=== PATIENT | female | born 1995 | race American Indian/Alaskan Native ===

== ENCOUNTER 2017-11-12 12:45 | Emergency (ER) | payer OTHER ==
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
[2017-11-12 17:02] LABS: HCG Qualitative,Urine Negative (Negative)
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
--- NOTE | 2017-11-12 18:18 | XRay Report ---
FINAL REPORT EXAM: XR SPINE CERVICAL 2-3V HISTORY: bilateral neck pain COMPARISON: None available. FINDINGS: Three views of the cervical spine obtained. Cervical vertebral body heights are preserved. Disc heights are preserved. There is straightening of the normal lordotic curvature which may relate to patient positioning or muscle spasm. Prevertebral soft tissues are within normal limits. Odontoid process is grossly intact. IMPRESSION: Cervical vertebral body heights and disc heights are preserved. Prevertebral soft tissues are within normal limits. There is straightening of the normal lordotic curvature which may relate to patient positioning or muscle spasm.
--- NOTE | 2017-11-12 18:22 | XRay Report ---
FINAL REPORT EXAM: XR SPINE LUMBOSACRAL 2-3V HISTORY: low back pain COMPARISON: None available. FINDINGS: Three views of the lumbar spine obtained. Lumbar vertebral body heights and disc heights are preserved. Pedicles are intact. No spondylolisthesis. Mild levoconvex curvature. IUD projects over the midline of the pelvic cavity. SI joints are preserved. IMPRESSION: Lumbar vertebral body heights and disc heights are preserved. Mild scoliotic curvature.
[2017-11-12 18:33] VITALS: BP 115/67
== END 2017-11-12 18:57 | disposition home or self-care (01) ==
LOC: ED 12:45
DX: S39.012A Strain of muscle, fascia and tendon of lower back, initial encounter (principal); S16.1XXA Strain of muscle, fascia and tendon at neck level, initial encounter; V89.2XXA Person injured in unspecified motor-vehicle accident, traffic, initial encounter; Y93.89 Activity, other specified; Y92.488 Other paved roadways as the place of occurrence of the external cause; Y99.8 Other external cause status
CPT/HCPCS: 72040; 72070; 72100; 81025; 99283

== ENCOUNTER 2022-01-05 21:08 | Emergency (ER) | payer SELFPAY ==
[2022-01-05 23:30] LABS: Basophils % (Auto) 0.4 % (0.0-1.8); Eosinophils # (Auto) 0.8 K/mm3 (0.0-0.4); Eosinophils % (Auto) 7.4 % (0.0-4.3); Hematocrit 37.3 % (30.3-42.9); Hemoglobin 12.3 gm/dl (10.1-14.3); Lymphocytes # (Auto) 3.7 K/mm3 (1.2-5.4); Lymphocytes % (Auto) 36.1 % (13.4-35.0); Mean Corpuscular HGB Conc 33 % (30-34); Mean Corpuscular Volume 85 fl (79-97); Monocytes # (Auto) 0.7 K/mm3 (0.0-0.8); Monocytes % (Auto) 6.8 % (0.0-7.3); Platelet Count 279 K/mm3 (140-440); Red Cell Distribution Width 15.5 % (13.2-15.2)
[2022-01-05 23:35] LABS: Blood Urea Nitrogen 13 mg/dL (7-17); Calcium 9.5 mg/dL (8.4-10.2); Hemolysis Index 3
[2022-01-05 23:39] LABS: BUN/Creatinine Ratio 19
[2022-01-06 02:17] LABS: Bilirubin,Urine NEG (Negative); Blood,Urine NEG (Negative); Color,Urine Yellow (Yellow); Protein,Urine <15 mg/dL mg/dL (Negative)
[2022-01-06 02:19] LABS: Mucus,Urine 2+ /HPF; Urobilinogen,Urine < 2 mg/dL (<2.0)
[2022-01-06 02:20] LABS: HCG Qualitative,Urine Positive (Negative); WBC,Urine < 1.0 /HPF (0.0-6.0)
[2022-01-06] MEDS ORDERED: ACETAMINOPHEN 500 MG TAB PO ONE (03:44)
--- NOTE | 2022-01-06 06:23 | Ultrasound Report ---
ULTRASOUND OBSTETRIC INDICATION / CLINICAL INFORMATION: Vaginal bleeding pain. - Clinical Gestational Age (GA) in weeks, days: 5 weeks 1 day TECHNIQUE: Transabdominal and Transvaginal. COMPARISON: None available. FINDINGS: No intrauterine gestation is identified. UTERUS: Normal measuring 8.4 x 5.6 x 4.9 cm. Endometrial thickness of 1.7 cm. ADNEXA: The right ovary is normal measuring 2.8 cm. The left ovary is mildly enlarged containing mult iple ovarian follicular cysts with the largest measuring 2.3 cm in diameter. FREE FLUID: Small volume ADDITIONAL FINDINGS: None. IMPRESSION: 1. No intrauterine gestation identified. Recommend serial quantitative beta-hCG measurements and shor t-term ultrasound follow-up. 2. Simple left ovarian cysts and mild physiologic free pelvic fluid. Signer Name: Sukh Dolan MD Signed: 01/06/2022 6:18 AM Workstation Name: [employer]
--- NOTE | 2022-01-06 07:11 | Emergency Department Report ---
- General Chief Complaint: Abdominal Pain Stated Complaint: ABD PAIN Time Seen by Provider: 01/06/22 04:33 Source: patient Mode of arrival: Ambulatory Limitations: No Limitations - Related Data Previous Rx's Medication Instructions Recorded Last Taken Type Cyclobenzaprine HCl [Flexeril 5 MG 5 mg PO TID PRN #15 tab 11/12/17 Unknown Rx TAB] Ibuprofen [Motrin 800 MG tab] 800 mg PO Q8HR PRN #15 tablet 11/12/17 Unknown Rx Allergies Allergy/AdvReac Type Severity Reaction Status Date / Time No Known Allergies Allergy Unverified 11/12/17 12:51 ED Review of Systems ROS: Stated complaint: ABD PAIN Other details as noted in HPI Comment: All other systems reviewed and negative ED Past Medical Hx - Past Medical History Previous Medical History?: No Hx Hypertension: No Hx Diabetes: No Hx Deep Vein Thrombosis: No Hx Renal Disease: No Hx Sickle Cell Disease: No Hx Seizures: No Hx Asthma: No - Surgical History Past Surgical History?: No - Social History Smoking Status: Never Smoker Substance Use Type: None - Medications Home Medications: Home Medications Medication Instructions Recorded Confirmed Last Taken Type Cyclobenzaprine HCl [Flexeril 5 MG 5 mg PO TID PRN #15 tab 11/12/17 Unknown Rx TAB] Ibuprofen [Motrin 800 MG tab] 800 mg PO Q8HR PRN #15 tablet 11/12/17 Unknown Rx ED Physical Exam - General Limitations: No Limitations General appearance: alert, in no apparent distress - Head Head exam: Present: atraumatic, normocephalic - Eye Eye exam: Present: normal appearance - ENT ENT exam: Present: mucous membranes moist - Neck Neck exam: Present: normal inspection - Respiratory Respiratory exam: Present: normal lung sounds bilaterally. Absent: respiratory distress - Cardiovascular Cardiovascular Exam: Present: regular rate, normal rhythm. Absent: systolic murmur, diastolic murmur, rubs, gallop - GI/Abdominal GI/Abdominal exam: Present: soft, tenderness (cramping), normal bowel sounds - Extremities Exam Extremities exam: Present: normal inspection - Back Exam Back exam: Present: normal inspection - Neurological Exam Neurological exam: Present: alert, oriented X3 - Psychiatric Psychiatric exam: Present: normal affect, normal mood - Skin Skin exam: Present: warm, dry, intact, normal color. Absent: rash ED Course Vital Signs 01/05/22 22:30 Temperature 98.3 F Pulse Rate 70 Respiratory 18 Rate Blood Pressure 109/55 O2 Sat by Pulse 100 Oximetry ED Medical Decision Making - Lab Data Result diagrams: 01/05/22 22:44 01/05/22 22:44 Critical care attestation.: If time is entered above; I have spent that time in minutes in the direct care of this critically ill patient, excluding procedure time. ED Disposition Disposition: HOME / SELF CARE / HOMELESS Condition: Stable Instructions: and the Partner's Role, Care, Ovarian Cyst, [id number], Abdominal Pain (ED) Additional Instructions: YOur ultrasound results were discussed with you. Please repeat your HCG in 3-5 days as discussed. Take tylenol for pain. Referrals: [facility] [Provider Group] - 3-5 Days NATALIE COPPOLA MD [Primary Care Provider] - 3-5 Days
[2022-01-06 09:20] VITALS: BP 110/76
--- NOTE | 2022-01-07 11:54 | Electrocardiograph Report ---
[facility] Test Date: 2022-01-05 Test Time: 22:36:27 Pat Name: KAMINI LIANG Department: Room: Gender: F Material Carrier: ANA : 1995 Requested By: MARÍA SMYTH Order Number: [id number] Reading MD: Silverio Iraheta Measurements Intervals [place] Rate: 63 P: 59 NC: 142 QRS: 72 QRSD: 84 T: 57 QT: 398 QTc: 410 Interpretive Statements Sinus rhythm No previous ECG available for comparison Electronically Signed On 01-07-2022 8:53:52 PDT by Silverio Iraheta
== END 2022-01-06 09:19 | disposition home or self-care (01) ==
LOC: ED 21:08
DX: O26.891 Other specified pregnancy related conditions, first trimester (principal); R10.30 Lower abdominal pain, unspecified; Z79.899 Other long term (current) drug therapy; Z3A.01 Less than 8 weeks gestation of pregnancy
CPT/HCPCS: 36415; 76801; 76817; 80048; 81001; 81025; 84702; 85025; 93005; 99284